=== PATIENT | female | born 1990 | race Hispanic/Latino ===

== ENCOUNTER → 2019-10-07 16:45 | Outpatient (ROUT) | payer MEDICAID, SELFPAY ==
[2019-10-07 18:44] LABS: Urine N gonorrhoeae NOT DETECTED
[2019-10-07 18:59] LABS: Urine Chlamydia NOT DETECTED
== END ==
PROVIDERS: Visit Provider Specialist
DX: Z34.81 Encounter for supervision of other normal pregnancy, first trimester (principal); Z3A.10 10 weeks gestation of pregnancy
CPT/HCPCS: 87491; 87591

== ENCOUNTER 2019-10-15 21:16 | Emergency (ER) | payer MEDICAID, SELFPAY ==
[2019-10-15 21:33] VITALS: BP 118/60; PULSE 73; RESP 16; TEMP 37; O2SAT 99; BMI 29.7
--- NOTE | 2019-10-15 21:42 | ED_ITS ---
HPI - Abdominal Pain General Chief Complaint: Abdominal Pain Stated Complaint: upper abdominal pain left and right side Time Seen by Provider: 10/15/19 21:42 Source: patient, family, old records reviewed and other (Dr. Lee called for transfer ER to ER for eval and further services.) Mode of arrival: Ambulatory Limitations: no limitations History of Present Illness HPI narrative: This is a 29-year-old female who comes to the emergency department with complaint of upper abdominal pain bilaterally that started at midnight yesterday or on 10/14/2019 and continued into this morning. Patient states she has not had any fevers or chills. She states pain does feel somewhat similar when she had her gallbladder out. She has had 1 prior episode that was sort of similar afterwards. Patient states she has been nauseated and did have 1 episode of vomiting but has not been eating or drinking much. She states that she does often constipated but did have a bowel movement today. She denies any black or blood. She has not had any frequency, dysuria urgency. She has about 10 or 11 weeks states her last menstrual period was July 20 and that she did have an ultrasound about a week ago for evaluation that was normal. She has not had any vaginal bleeding or fluid leakage. She denies any back or flank pain. Patient was seen by Dr. Lee in [place], labs were obtained and do not show any major abnormalities urine did show some leukocyte esterase. Patient did receive a Zofran and a dose of [place] prior to discharge from the emergency department and states that that has been helpful for her discomfort and her nausea has resolved at this time. Related Data Previous Rx's Medication Instructions Recorded ranitidine HCl [Zantac] 150 mg PO DAILY #20 tab 10/15/19 Review of Systems Review of Systems ROS Unobtainable: All systems reviewed & are unremarkable except as noted in HPI and below Patient History Surgical History (Updated 10/15/19 @ 21:57 by Katy Flores DO) Hx of cholecystectomy (Acute) Social History (Updated 10/15/19 @ 21:59 by Katy Flores DO) Smoking Status: Never smoker Smoking Status: Never smoker alcohol intake frequency: 0-2 drinks per day Substance Use Type: does not use Exam Narrative Exam Narrative: GENERAL: Alert and oriented x three, well-nourished, well- appearing female in mild distress HEENT: Head normocephalic, atraumatic, EOMI, pupils reactive, face symmetric, moist mucous membranes NECK: Supple, full range of motion CARDIOVASCULAR: Regular rate and rhythm without murmurs, rubs or gallops. RESPIRATORY: Breath sounds equal bilaterally, no wheezes rales or rhonchi. ABDOMEN: Soft, mild bilateral upper quadrant tenderness, mildly distended. Normoactive bowel sounds all 4 quadrants. No guarding or rebound, rigidity, no mass : No CVA tenderness EXTREMITIES: Normal range of motion, no clubbing or edema. Neurovascularly intact NEUROLOGICAL: Cranial nerves II through XII grossly intact. Moving all extremities SKIN: Warm, dry, no petechiae, no rashes or lesions. Initial Vital Signs Initial Vital Signs: Vital Signs Temperature 98.6 F 10/15/19 21:33 Pulse Rate 73 10/15/19 21:33 Respiratory Rate 16 10/15/19 21:33 Blood Pressure 118/60 10/15/19 21:33 Pulse Oximetry 99 10/15/19 21:33 Course Orders Ordered: ED Orders 10/15/19 21:54 US OB <= 14 weeks fetus Stat US abdomen complete Stat Discontinued Medications Pantoprazole Sodium (Protonix) 20 mg PO NOW ONE Stop: 10/15/19 22:54 Last Admin: 10/15/19 22:59 Dose: 20 mg Documented by: EL Vital Signs Vital signs: Vital Signs - 8 hr 10/15/19 21:33 10/15/19 22:00 10/15/19 22:30 Temperature 98.6 F Pulse Rate 73 72 73 Respiratory Rate 16 16 16 Blood Pressure 118/60 Blood Pressure [Left Arm] 97/53 L 100/56 L Pulse Oximetry 99 98 98 MDM - Abdominal Pain Imaging Data US - OB: Radiologist's Impression: Single living intrauterine gestation at 12 weeks and 0 days by today's ultrasound criteria right ovary appears normal, no red non so mass identified. Left ovary was not seen normal appearance of the left adnexa without evidence of mass feel heart rate was 162 placenta is posterior US - abdomen: Radiologist's Impression: Normal complete abdominal ultrasound. MDM Narrative Medical decision making narrative: Patient sent by [facility], patient's sodium was 133 with potassium of 3.3 and a CO2 of 21 creatinine was 0.3 with a BUN of 8, anion gap was 9 with a glucose of 95. LFTs were all negative with a bilirubin of 0.5 alk-phos of 50 ALT of 24 and AST of 23. Patient's white count is 7 with a hemoglobin of 12.1 and platelets are 198 with no other changes to side, lipase was 32. Urine shows white blood cells 3-5, 1 to red blood cells with rare bacteria and 1+ leuks and otherwise negative. Patient was sent from [place] as they do not have ultrasound imaging available which is the best twice for this patient with her . She did also receive 0.5 mg Dilaudid at 7:00 p.m. and was discharged with 1 prepack of Zofran and hydrocodone which she has had a dose. Patient has a fairly benign exam here in the department but she has had pain medication prior to arrival. Ultrasound of abdomen as well as a obstetrics is ordered and prelim report is negative for changes on abdominal US and shows intrauterine gestations. Discussed findings with patient, she has had no urinary symptoms and Dr. Lee has cultured her urine. She states while here she has been passing flatus and feeling more comfortable from this. Given recommendation of Gas-X already and they asked about zantac which may be helpful and given rx. Patient is tolerating oral fluids, feeling more comfortable and requesting to be discharged. Discharge Plan Departure Patient Disposition: Home Clinical Impression: Abdominal pain Discharge Date/Time: 10/15/19 23:08 Instructions: DI for Abdominal Pain -- Early Activity Restrictions/Additional Instructions: Follow-up with primary care in the next 2-3 days for recheck if your symptoms have not resolved. You may take medication as dispensed by the facility at [place]. You may take Zantac once daily. You may also try Gas-X or simethicone over the counter for gas. Return to the ER for fevers greater than 100.4 F, rapidly worsening pain, passing out, new shortness of breath or chest pain, persistent vomiting, black or bloody stools, vaginal bleeding, difficulty with urination or other new or concerning symptoms. Prescriptions: New ranitidine HCl [Zantac] 150 mg tablet 150 mg PO DAILY Qty: 20 RF: 0
--- NOTE | 2019-10-15 21:54 | DI.US.S_ITS ---
PROCEDURE: US ABDOMEN COMPLETE INDICATIONS: PAIN TECHNIQUE: Real-time scanning was performed of the abdominal and retroperitoneal organs, with image documentation. COMPARISON: [facility], US, US OB <= 14 WEEKS FETUS, 10/07/2019, 13:49. [facility], US, US OB <= 14 WEEKS FETUS, 10/15/2019, 22:30. FINDINGS: Liver: Liver is normal in size and homogeneous in echotexture. Gallbladder: Surgically absent. Biliary ducts: Intrahepatic bile ducts are non-dilated. Extrahepatic bile duct caliber measures up to 5 mm. Normal is 6-7 mm or less in diameter, or 10 mm or less post-cholecystectomy. Pancreas: Visualized portions of the pancreas are sonographically normal. Spleen: Spleen is normal in size and homogeneous in echotexture. Kidneys: Right kidney measures 11 cm long; left kidney measures 12 cm long. No hydronephrosis. Aorta: Visualized aorta is normal in caliber at less than 3 cm. Iliacs: Proximal common iliac arteries are normal in caliber at less than 2.5 cm. IVC: Intrahepatic inferior vena cava is patent. Miscellaneous: No free abdominal fluid. IMPRESSION: 1. No acute sonographic intra-abdominal abnormality identified. Specifically, no evidence of hydronephrosis. Dictated by: Aj Pendleton M.D. on 10/16/2019 at 7:15 Approved by: Aj Pendleton M.D. on 10/16/2019 at 7:17
--- NOTE | 2019-10-15 21:54 | DI.US.S_ITS ---
PROCEDURE: US OB <= 14 WEEKS FETUS INDICATIONS: PAIN OUTSIDE/PRIOR DATING DATA: Last menstrual period (LMP): 07/28/19. LMP-based estimated date of delivery (GEMA): 05/04/20. First dating scan (date and location): 10/07/[address] George's office. Estimated date of delivery (GEMA) from first dating scan: 05/03/20. TECHNIQUE: Real-time scanning was performed of the fetus and maternal pelvic organs, with image documentation. Endovaginal scanning was also performed to better visualize the fetus and maternal ovaries. COMPARISON: [facility], , US ABDOMEN COMPLETE, 10/15/2019, 22:20. [facility], , US OB <= 14 WEEKS FETUS, 10/07/2019, 13:49. FINDINGS: Embryo: There is a single intrauterine with a pole measuring approximately 5.3 cm in crown-rump length corresponding to a gestational age of 12 weeks 0 days. There is heart motion with a rate of 163 beats per minute. No luis m-gestational hematoma collections identified. Measurement variability in dating: +/- 4 weeks by LMP, +/- 7 days by mean sac diameter (use before 6 weeks gestation if crown-rump length not able to be measured), +/- 5 days by crown-rump length (up to 8 weeks 6 days gestation), +/- 7 days by crown-rump length (up to 13 weeks 6 days gestation). Maternal organs: The right ovary measures 2.5 x 2.3 x 1.9 cm. The left ovary was not visualized. No adnexal masses identified. IMPRESSION: 1. Single living intrauterine with calculated gestational age of 12 weeks 0 days. 2. No luis m-gestational hematoma collections identified. Dictated by: Aj Pendleton M.D. on 10/16/2019 at 7:17 Approved by: Aj Pendleton M.D. on 10/16/2019 at 7:22
[2019-10-15 22:00] VITALS: BP 97/53; PULSE 72; RESP 16; O2SAT 98
[2019-10-15 22:30] VITALS: BP 100/56; PULSE 73; RESP 16; O2SAT 98
[2019-10-15] MEDS: PANTOPRAZOLE 20 MG TABLET PO (22:59)
== END 2019-10-15 23:08 | disposition home or self-care (01) ==
PROVIDERS: Emergency Provider Emergency Medicine
DX: O26.891 Other specified pregnancy related conditions, first trimester (principal); R10.9 Unspecified abdominal pain; Z3A.12 12 weeks gestation of pregnancy
CPT/HCPCS: 76700; 76801; 99283

== ENCOUNTER → 2019-12-28 11:24 | Outpatient (CLI) | payer MEDICAID, SELFPAY ==
[2019-12-28 12:33] LABS: Add Manual Diff / Slide Review NO; Basophils Absolute Auto 0 /uL (0-100); Basophils Percent Auto 0.5 % (0-2); Eosinophils Absolute Auto 100 /uL (0-450); Eosinophils Percent Auto 1.5 % (2-4); Hematocrit 35.2 % (36-46); Hemoglobin 12.1 g/dL (12.0-16.0); Lymphocytes Absolute Auto 1400 /uL (1100-4500); Lymphocytes Percent Auto 22.2 % (25-40); Mean Corpuscular HGB Conc 34.4 % (30-36); Mean Corpuscular Hemoglobin 31.7 PG (26-34); Mean Corpuscular Volume 92.2 fL (80-100); Monocytes Absolute Auto 400 /uL (0-900); Neutrophils Absolute Auto 4400 /uL (1500-7000); Neutrophils Percent Auto 68.8 % (50-75); Platelet Count 208 X10^3/uL (150-400); Red Blood Cell Count 3.82 X10^6/uL (4.0-5.2); Red Cell Distribution Width 14.3 % (11.6-14.8); White Blood Cell Count 6.3 X10^3/uL (4.5-11.0)
[2019-12-28 13:18] LABS: Appearance Urine UA CLEAR; Bilirubin Urine UA NEGATIVE (NEGATIVE); Color Urine UA YELLOW; Glucose Urine UA NEGATIVE (Negative); Ketones Urine UA NEGATIVE (NEGATIVE); Leukocyte Esterase Urine UA NEGATIVE (NEGATIVE); Nitrite Urine UA NEGATIVE (Negative); Occult Blood Urine UA NEGATIVE (Negative); Protein Urine UA NEGATIVE (Negative); Urobilinogen Urine UA 0.2 E.U./dL (0.2)
[2019-12-28 17:12] LABS: Hepatitis B Surface Antigen NEGATIVE s/c (NEGATIVE); Rubella Antibody IgG > 350.0 IU/mL (>15)
[2019-12-28 17:28] LABS: HIV 1 & 2 Ab/Ag 4th Gen Combo NEGATIVE (NEGATIVE); Hep C Virus Ab w/Reflex Quant NEGATIVE s/c (NEGATIVE)
[2019-12-29 02:38] LABS: RPR Screen Non Reactive (Non Reactive)
[2019-12-29 08:19] LABS: Varicella IgG Antibody 1034 index (Immune >165)
== END ==
PROVIDERS: Referring Provider Specialist; Visit Provider Specialist
DX: Z34.81 Encounter for supervision of other normal pregnancy, first trimester (principal)
CPT/HCPCS: 36415; 80055; 81003; 86787; 86803; 86850; 86900; 86901; 87086; 87389

== ENCOUNTER → 2020-04-09 11:41 | Outpatient (CLI) | payer MEDICAID, SELFPAY ==
[2020-04-10 08:19] LABS: Strep Grp B PCR NEG for Grp B Strep
== END ==
PROVIDERS: Visit Provider Specialist
DX: Z34.83 Encounter for supervision of other normal pregnancy, third trimester (principal); Z3A.36 36 weeks gestation of pregnancy
CPT/HCPCS: 87653

== ENCOUNTER 2020-04-29 18:19 | Inpatient (IN) | payer MEDICAID, SELFPAY ==
[2020-04-29] MEDS: miSOPROStoL 25 MCG TABLET VAG (19:59)
[2020-04-29 20:33] LABS: COVID19 -Nasal RAPID Negative (Negative)
[2020-04-29 20:59] LABS: Add Manual Diff / Slide Review NO; Basophils Absolute Auto 0 /uL (0-100); Basophils Percent Auto 0.3 % (0-2); Eosinophils Absolute Auto 100 /uL (0-450); Eosinophils Percent Auto 1.7 % (2-4); Hematocrit 33.3 % (36-46); Hemoglobin 11.5 g/dL (12.0-16.0); Lymphocytes Absolute Auto 1500 /uL (1100-4500); Lymphocytes Percent Auto 21.8 % (25-40); Mean Corpuscular HGB Conc 34.6 % (30-36); Mean Corpuscular Volume 92.4 fL (80-100); Monocytes Absolute Auto 700 /uL (0-900); Monocytes Percent Auto 10.8 % (3-14); Neutrophils Absolute Auto 4300 /uL (1500-7000); Neutrophils Percent Auto 65.4 % (50-75); Platelet Count 166 X10^3/uL (150-400); Red Blood Cell Count 3.61 X10^6/uL (4.0-5.2); White Blood Cell Count 6.7 X10^3/uL (4.5-11.0)
[2020-04-29 21:02] VITALS: BP 113/66
[2020-04-30] MEDS: LACTATED RINGERS 1,000 ML 100 ML IV ×3 (09:13→18:42)
[2020-04-30] MEDS: OXYTOCIN PREMIX 30 UNIT/500 ML PLAST..BAG IV (09:14)
[2020-04-30] MEDS: FENT 2MCG/ML BUPIV 0.125% EPI 200 MCG/100 ML PLAST..BAG 7 MCG EPIDURAL (17:03)
--- NOTE | 2020-04-30 19:10 | P.HPOB_ITS ---
OB HPI Date/Time Date of admission: 04/29/20 Date Patient Seen: 04/30/20 Time Patient Seen: 10:00 History of Present Condition Chief complaint: maternity : 3 Para: 1 Estimated Date of Delivery: 05/04/20 Estimated Gestational Age (weeks): 39 Narrative: Sherry Alarcon Burke Polanco is a 30 year old female admitted for induction for distance from the hospital. She received Cytotec x1 and contracted enough that she was unable to receive a 2nd dose. She is started on Pitocin this morning. Patient is requesting epidural when her pain increases. Indications Indication for induction OB: maternal distance History of Present care: good care, initiated at week # (10), number of visits (9) and pounds weight gain (57) Dating criteria: based on 1st trimester US only Obstetrical complications: none Medical complications: none Preadmission Labs Blood type: O (+) positive -: Antibody screen: negative, GBS status: negative, HBsAG: negative, HIV: negat devyn and RPR/VDLR: negative -: Rubella: immune and Varicella: immune HCAB: negative Quad screen: Normal 1 hr GTT: 117 Prior (ies) History: 03/04/12 40 week gestation 7 lb 11 oz female epidural Evaluation Evaluation Baseline heart rate: 130 Variability: Moderate (11-25) monitor accelerations: Present monitor decelerations: Absent Contraction Frequency (minutes): 4 Uterine Contraction Intensity: Mild Category of Tracing: Reactive Cervical dilation (cm): 2 Cervical effacement (%): 50 station: -2 Laboratory results: Laboratory Tests 04/29/20 04/29/20 04/29/20 20:10 20:20 20:20 WBC 6.7 RBC 3.61 L Hgb 11.5 L Hct 33.3 L MCV 92.4 MCH 32.0 MCHC 34.6 RDW 15.0 H Plt Count 166 Neut % (Auto) 65.4 Lymph % (Auto) 21.8 L [place] % (Auto) 10.8 Eos % (Auto) 1.7 L Baso % (Auto) 0.3 Neut # (Auto) 4300 Lymph # (Auto) 1500 [place] # (Auto) 700 Eos # (Auto) 100 Baso # (Auto) 0 COVID-19 PCR Negative Blood Type O Positive Antibody Screen Negative [facility] Medical History Gallstones and inflammation of gallbladder with obstruction (Acute ~2017) Kidney stones (Acute) Migraine (Acute) (spontaneous vaginal delivery) (Acute ~02/23/12) Surgical History Hx laparoscopic cholecystectomy (Acute ~07/21/18) Hx of cholecystectomy (Acute) S/P dilatation and curettage (Acute ~2009) Family History Father Heavy smoker Mother Hyperlipidemia Hypothyroid Grandfather MVA (motor vehicle accident) Grandmother Diabetes mellitus Altered cardiac tissue perfusion Grandfather Myocardial infarction Grandmother Hip fracture Brother Diabetes mellitus Family/Other Gallbladder cancer Social History marital status: unmarried,living together household members: significant other and children pets and animals: Yes (Cat inside the home - and aware) education level: college (HS Graduate and X 6 months of College) occupational status: unemployed current occupational exposures/hazards: No sobia/mandaen: [employer] special sobia needs: No Smoking Status: Former smoker Tobacco: How many years used: 9 second hand exposure: No alcohol intake: former (stopped 3.5 years ago - when she stopped smoking) substance use type: does not use Meds Home Medications and Allergies Home Medications Medication Instructions Recorded Confirmed Type prenat.vits,lokesh,[id number] 1 tab PO DAILY 10/04/19 04/29/20 History Allergies Allergy/AdvReac Type Severity Reaction Status Date / Time No Known Drug Allergies Allergy Verified 04/29/20 20:56 Review of Systems Review of Systems Narrative: Patient denies any headaches, scotomata, epigastric pain. Good movement. No leakage of fluid. ROS: Yes All systems reviewed with the patient and are negative except as otherwise documented Exam Vital Signs (past 8 hours): Blood pressure 113/58, pulse 71, temperature 35.8? Narrative Exam Narrative: HEENT exam within normal limits. Lungs are clear to auscultation percussion. Heart is regular rate and rhythm no S3-S4 or murmurs. Abdomen is gravid. is vertex. Extremities without edema and nontender. Objective Labs Result Diagrams: 04/29/20 20:20 Labs: Laboratory Results - last 24 hr 04/29/20 04/29/20 04/29/20 20:10 20:20 20:20 WBC 6.7 RBC 3.61 L Hgb 11.5 L Hct 33.3 L MCV 92.4 MCH 32.0 MCHC 34.6 RDW 15.0 H Plt Count 166 Neut % (Auto) 65.4 Lymph % (Auto) 21.8 L [place] % (Auto) 10.8 Eos % (Auto) 1.7 L Baso % (Auto) 0.3 Neut # (Auto) 4300 Lymph # (Auto) 1500 [place] # (Auto) 700 Eos # (Auto) 100 Baso # (Auto) 0 COVID-19 PCR Negative Blood Type O Positive Antibody Screen Negative Assessment and Plan Assessment and Plan Assessment and Plan narrative: 39 week gestation who lives some distance from the hospital who was admitted for induction. Anticipate vaginal delivery
--- NOTE | 2020-04-30 20:00 | P.PCNOB_ITS ---
Labor & Delivery Delivery date: 04/30/20 Intrapartal events: None Cervical ripening method: per misoprostal protocol Induction method: per pitocin protocol Delivery monitor: external FHT and external uterine Route of delivery: L&D Laceration Description: Perineal - 2nd Degree Delivery repair: chromic (3 0) Estimated blood loss (mL): 200 Anesthesia type: Epidural Narrative: Patient arrived on Labor and delivery for induction for distance from the hospital. She received 1 dose of Cytotec and was zackery too much to do a 2nd dose. She was started on Pitocin. heart tones for remain category 1 to category 2 throughout labor. She received an epidural catheter for pain control. She was AROM for clear fluid when she was complete. She had 3 pushes and delivered spontaneously, over an intact perineum. There was a tight nuchal cord that was released after delivery the baby. The viable female infant was placed on maternal abdomen. After the cord stopped pulsating the cord was clamped, cut, and cord bloods obtained. The placenta delivered spontaneously, intact, with 3 vessels. There were no cervical or vaginal tears. A second- degree perineal tear was repaired with 3 0 chromic in a usual 2 layer fashion. Both infant mother doing well. Plan is for routine care. Baby 1: Infant gender: Female Presentation: vertex position: Right Occiput Anterior Placenta delivery description: Spontaneous cord vessel description: Nuchal Cord score (1 min): 8 score (5 min): 9 Plan for aftercare: Routine care
[2020-04-30] MEDS: IBUPROFEN 600 MG TABLET PO (22:58)
[2020-05-01] MEDS: ePHEDrine 50 MG/ML VIAL IM (00:05)
[2020-05-01] MEDS: IBUPROFEN 600 MG TABLET PO ×2 (05:10→12:09)
[2020-05-01 06:25] LABS: Add Manual Diff / Slide Review NO; Basophils Absolute Auto 0 /uL (0-100); Basophils Percent Auto 0.3 % (0-2); Eosinophils Absolute Auto 100 /uL (0-450); Eosinophils Percent Auto 1.1 % (2-4); Hematocrit 33.4 % (36-46); Hemoglobin 11.4 g/dL (12.0-16.0); Lymphocytes Absolute Auto 1300 /uL (1100-4500); Lymphocytes Percent Auto 13.5 % (25-40); Mean Corpuscular HGB Conc 34.1 % (30-36); Mean Corpuscular Hemoglobin 31.8 PG (26-34); Mean Corpuscular Volume 93.1 fL (80-100); Monocytes Absolute Auto 700 /uL (0-900); Monocytes Percent Auto 7.2 % (3-14); Neutrophils Absolute Auto 7700 /uL (1500-7000); Neutrophils Percent Auto 77.9 % (50-75); Platelet Count 140 X10^3/uL (150-400); Red Blood Cell Count 3.59 X10^6/uL (4.0-5.2); Red Cell Distribution Width 14.7 % (11.6-14.8); White Blood Cell Count 9.9 X10^3/uL (4.5-11.0)
[2020-05-01] MEDS: DERMOPLAST SPRAY 20% 60 ML 1 SPRAY TOP (11:38)
[2020-05-01] MEDS: LANOLIN OINT 7 GM 1 APPLIC TOP (11:38)
--- NOTE | 2020-05-01 14:44 | P.DS_ITS ---
Discharge Providers Provider Date of admission: 04/29/20 18:19 Discharge Date: 05/01/20 Primary care physician: Argenis George MD Consults: 04/29/20 19:08 Consult to Anesthesiology Urgent Comment: Consulting Provider: Anesthesiologist Reason for consultation: epidural Has provider been notified: No 05/01/20 19:59 Consult to Special Services Agent Routine Comment: Discharge provider: Argenis George MD Summary Hospital Course Date Patient Seen: 05/01/20 Time Patient Seen: 14:45 Procedures: Prostin followed by Pitocin induction, epidural catheter, spontaneous vaginal delivery, repair of second-degree tear Hospital Course: Patient arrived on Labor and delivery for induction for distance from the hospital. She underwent Prostin followed by Pitocin. She received an epidural catheter for pain control. Patient has spontaneous vaginal delivery of a viable female . Patient and baby are doing well. She is breast-feeding. She is urinating and ambulating well. Peripartum Data Infant Delivery Method: Natural Vaginal Laceration Description: Perineal - 2nd Degree complications: none 1: Gender: Female Disposition of : home Status at Discharge Cognitive/behavioral status at discharge: oriented Functional status at discharge: independent ambulation Overall status at discharge: patient is progressing back to baseline Time Spent with Patient Time attestation: Total time spent providing and/or coordinating discharge services: Time spent: Less than 30 minutes Objective Labs Result Diagrams: 05/01/20 06:00 Labs: Laboratory Results - last 24 hr 05/01/20 06:00 WBC 9.9 RBC 3.59 L Hgb 11.4 L Hct 33.4 L MCV 93.1 MCH 31.8 MCHC 34.1 RDW 14.7 Plt Count 140 L Neut % (Auto) 77.9 H Lymph % (Auto) 13.5 L [place] % (Auto) 7.2 Eos % (Auto) 1.1 L Baso % (Auto) 0.3 Neut # (Auto) 7700 H Lymph # (Auto) 1300 [place] # (Auto) 700 Eos # (Auto) 100 Baso # (Auto) 0 Exam Vital Signs (past 8 hours): Blood pressure 110/63, pulse 83, temperature 97.6? Narrative Exam Narrative: Abdomen is soft, nontender. Uterus is firm, at U, nontender. Mild lochia. Perineal repair is intact. Extremities with trace edema and nontender. Patient is O positive, rubella immune, she received the Tdap in the 3rd trimester. Discharge Plan Discharge Plan Patient Disposition: Home Discharge orders & Medications Prescriptions: New ibuprofen 600 mg Tablet 600 mg PO Q6HR PRN (Reason: Pain, Mild (1-3)) Qty: 30 RF: 0 Continued prenat.vits,lokesh,[id number]-bqsxr Tablet 1 tab PO DAILY RF: 0 Follow up/Referrals: Argenis George MD [Primary Care Provider] - 06/13/20 12:00 pm Diet/Activity/Treatments Diet: Regular Activity: Nothing in vagina for 6 weeks Skin/Wound/Dressing Care Report to your healthcare provider any signs of infection, such as:: chills, fever and increased pain Discharge Data Primary Care Provider: Argenis George
[2020-05-01 16:03] VITALS: BP 113/66; PULSE 80; RESP 18; TEMP 37
== END 2020-05-01 16:42 | disposition home or self-care (01) | DRG 807 ==
PROVIDERS: Admitting Provider Obstetrics & Gynecology; PCP Specialist; Referring Provider Obstetrics & Gynecology; Visit Provider Obstetrics & Gynecology
DX: O69.81X0 Labor and delivery complicated by cord around neck, without compression, not applicable or unspecified (principal); Z37.0 Single live birth; O70.1 Second degree perineal laceration during delivery; Z3A.39 39 weeks gestation of pregnancy
CPT/HCPCS: 01967; 36415; 59050; 59200; 59410; 85025; 86850; 86900; 86901; 87635; G0379; J2590